=== PATIENT | male | born 1960 | race African-American/Black ===

== ENCOUNTER 2017-07-25 01:24 | Emergency (ER) | payer MEDICAID ==
[~2017-07-25] VITALS: Ht 172.7 cm; Wt 77.0 kg
[~2017-07-25 01:24] MED LIST: ASPI-1159 PO; ATOR20TA PO; Aspirin PO; Atenolol PO; CLON0.1T PO; CLON0.1T14 PO; Hydralazine Hcl PO; INDO-53 PO; LOSA100T14 PO; LOSA50TA3 PO; Levothyroxine Sodium PO; P20 PO; TRAM50TA73 PO
[2017-07-25] MEDS ORDERED: MORPHINE SULFATE 4 MG/ML CPJ (NOT FOR IM USE) IV ONE (06:45)
[2017-07-25] MEDS ORDERED: ONDANSETRON HCL 4MG/2ML VIAL IV ONE (06:45)
[2017-07-25] MEDS ORDERED: COLCHICINE 0.6MG TABLET PO ONE (08:15)
[2017-07-25] MEDS ORDERED: ACETAMINOPHEN 325MG TABLET PO ONE (08:15)
[2017-07-25] MEDS ORDERED: MORPHINE SULFATE 10 MG/ML CPJ IM ONE (08:45)
[2017-07-25 09:06] VITALS: BP 145/86
== END 2017-07-25 09:12 | disposition home or self-care (01) ==
LOC: ER 01:33
DX: M10.9 Gout, unspecified (principal); M25.572 Pain in left ankle and joints of left foot; I10 Essential (primary) hypertension; Z86.73 Personal history of transient ischemic attack (TIA), and cerebral infarction without residual deficits; Z88.0 Allergy status to penicillin; Z79.899 Other long term (current) drug therapy; Z79.82 Long term (current) use of aspirin
CPT/HCPCS: 36415; 73610; 73620; 84550; 93971; 96372; 99285; J2270; Z7610; J2405

== ENCOUNTER 2018-03-23 22:23 | Emergency (ER) | payer MEDICAID ==
[~2018-03-23] VITALS: Ht 170.2 cm; Wt 84.0 kg
[~2018-03-23 22:23] MED LIST changes: -TRAM50TA73 PO; +TRAM50TA94 PO
[2018-03-24] MEDS ORDERED: ACETAMINOPHEN 325MG TABLET PO ONE (04:30)
[2018-03-24 05:00] VITALS: BP 187/100
== END 2018-03-24 06:09 | disposition home or self-care (01) ==
LOC: ER 22:33
DX: M54.31 Sciatica, right side (principal); M54.32 Sciatica, left side; I10 Essential (primary) hypertension; E78.00 Pure hypercholesterolemia, unspecified; F17.200 Nicotine dependence, unspecified, uncomplicated; Z86.73 Personal history of transient ischemic attack (TIA), and cerebral infarction without residual deficits; Z88.0 Allergy status to penicillin; Z93.1 Gastrostomy status; Z79.899 Other long term (current) drug therapy
CPT/HCPCS: 99283